=== PATIENT | male | born 1975 | race Caucasian/White ===

== ENCOUNTER → 2017-03-27 | Outpatient (CLI) | payer BC ==
[~2017-03-27] MED LIST: MELO-190 PO
== END ==
LOC: STAR 15:28
PROVIDERS: ATTEND Orthopaedic Surgery
DX: Z02.9 Encounter for administrative examinations, unspecified (principal)

== ENCOUNTER 2017-04-01 12:23 | Day surgery (SDC) | payer BC ==
[2017-03-27 15:57] VITALS: BP 125/75
[~2017-04-01] VITALS: Ht 177.8 cm; Wt 95.0 kg
[~2017-04-01 12:23] MED LIST changes: +BUPIVACAINE/PF-EPI 0.5% 1:200K ONE
[2017-04-01] MEDS ORDERED: LACTATED RINGERS 1,000 ML IV SCH (12:49)
[2017-04-01] MEDS ORDERED: LIDOCAINE 1%, 2ML SQ PRN (13:00)
[2017-04-01] MEDS ORDERED: MIDAZOLAM 1 MG/ML, 2ML ONE (13:39)
[2017-04-01] MEDS ORDERED: FENTANYL PF 250 MCG/5ML ONE (13:39)
[2017-04-01] MEDS ORDERED: KETOROLAC 30 MG/1 ML ONE (13:53)
[2017-04-01] MEDS ORDERED: PROPOFOL 10 MG/ML, 20ML ONE (13:53)
[2017-04-01] MEDS ORDERED: DEXAMETHASONE 4 MG/ML, 1ML ONE (13:53)
[2017-04-01] MEDS ORDERED: ONDANSETRON 2MG/ML, 2ML ONE (13:53)
[2017-04-01] MEDS ORDERED: CEFAZOLIN 1,000 MG ONE (13:53)
[2017-04-01] MEDS ORDERED: MIDAZOLAM 1 MG/ML, 2ML IV PRN (14:30)
[2017-04-01] MEDS ORDERED: ACETAMINOPHEN 325 MG TABLET PO PRN ×2 (14:30→17:00)
[2017-04-01] MEDS ORDERED: PROMETHAZINE 25 MG/ML, 1ML IV PRN (14:30)
[2017-04-01] MEDS ORDERED: OXYcodone 5 MG/5 ML ORAL.SOL UDC PO PRN (14:30)
[2017-04-01] MEDS ORDERED: ALBUTEROL SULFATE 2.5 MG/3 ML NPPB PRN (14:30)
[2017-04-01] MEDS ORDERED: EPHEDRINE 50 MG/ML, 1ML IVPush PRN (14:30)
[2017-04-01] MEDS ORDERED: LABETALOL 5MG/ML, 20ML IV PRN (14:30)
[2017-04-01] MEDS ORDERED: ONDANSETRON 2MG/ML, 2ML IVPush PRN ×2 (14:30→17:00)
[2017-04-01] MEDS ORDERED: hydrALAzine 20 MG/ML, 1ML IV PRN (14:30)
[2017-04-01] MEDS ORDERED: MEPERIDINE/PF 25MG/0.5ML IVPush PRN (14:30)
[2017-04-01] MEDS ORDERED: METOPROLOL 1 MG/ML, 5ML IV PRN (14:30)
[2017-04-01] MEDS ORDERED: MEPERIDINE/PF 25MG/0.5ML ONE (15:10)
[2017-04-01] MEDS ORDERED: ACETAMINOPHEN 650 MG/20.3 ML UDC ONE (15:16)
[2017-04-01] MEDS ORDERED: OXYcodone 5 MG/5 ML ORAL.SOL UDC ONE (15:16)
[2017-04-01] MEDS ORDERED: FENTANYL PF 100 MCG/2ML ONE ×2 (15:16→15:52)
[2017-04-01] MEDS: FENTANYL PF 100 MCG/2ML IV PRN ×4 (15:20→16:15)
[2017-04-01] MEDS ORDERED: HYDROmorphone 1 MG/ML, 1ML ONE ×2 (15:26→16:24)
[2017-04-01] MEDS: HYDROmorphone 1 MG/ML, 1ML IV PRN ×4 (15:30→16:25)
[2017-04-01] MEDS ORDERED: MORPHINE SULFATE 4 MG/ML, 1ML ONE (16:56)
[2017-04-01] MEDS ORDERED: PROMETHAZINE 25 MG/ML, 1ML IM PRN (17:00)
[2017-04-01] MEDS ORDERED: morphine SULFATE 10 MG/ML, 1ML IVPush PRN (17:00)
[2017-04-01] MEDS ORDERED: OXYcodone/APAP 5/325MG TABLET PO PRN (17:00)
[2017-04-01] MEDS ORDERED: KETOROLAC 30 MG/1 ML IVPush SCH (17:00)
== END 2017-04-01 17:45 ==
LOC: OUT 12:23
PROVIDERS: ATTEND Orthopaedic Surgery
DX: S46.111A Strain of muscle, fascia and tendon of long head of biceps, right arm, initial encounter (principal); X50.0XXA Overexertion from strenuous movement or load, initial encounter; Y93.9 Activity, unspecified; Y92.9 Unspecified place or not applicable; Y99.9 Unspecified external cause status
CPT/HCPCS: 23430; 73070; 76001; C1713; J0690; J1100; J1170; J1885; J2175; J2250; J2270; J2405; J2704; J3010; J3490; J7120